=== PATIENT | male | born 2000 | race African-American/Black ===

== ENCOUNTER 2022-07-23 12:22 | Outpatient (CLI) | payer OTHER, SELFPAY | END 2022-07-23 12:23 | disposition home or self-care (01) | LOC: OP CLINIC 12:23 | PROVIDERS: PCP Family Medicine; Visit Provider Internal Medicine Gastroenterology | DX: K92.1 Melena (principal); K64.8 Other hemorrhoids | CPT/HCPCS: 45378; J2250; J3010 ==

== ENCOUNTER 2022-07-30 22:54 | Emergency (ER) | payer OTHER, SELFPAY ==
[2022-07-30 23:11] VITALS: BP 135/78; PULSE 75; RESP 18; TEMP 36.7; O2SAT 99; BMI 26.6
--- NOTE | 2022-07-30 23:22 | ED.GENADULT ---
HPI - General Adult General Time Seen by Provider: 23:20 Date Seen: 07/30/22 Chief complaint: Laceration/Wound Stated complaint: Cut Left Arm - through window Time Seen by Provider: 07/30/22 22:57 Source: patient Mode of arrival: ambulatory Limitations: no limitations History of Present Illness HPI narrative: 21-year-old who presents with a laceration of the left wrist. Patient was holding window up and broke cutting his left wrist. This happened about 30 minutes prior to arrival. Patient washed the wound out and came to the emergency department. Tetanus reported to be up-to-date. No other injuries. Related Data Home Medications Medication Instructions Recorded Confirmed No Known Home Medications 07/30/22 07/30/22 Allergies Allergy/AdvReac Type Severity Reaction Status Date / Time bee sting Allergy Severe Anaphylaxis Uncoded 07/30/22 23:13 Review of Systems Status of ROS: Reports: 10 or more systems reviewed and unremarkable except as noted in History and below Exam Narrative: Exam Narrative: General: well nourished , NAD Head: Atraumatic and normocephalic ENT: External ears and external nose are normal Eyes: Conjunctiva clear, pupils are equal reactive, external ocular motions are intact Neck: Full spontaneous range of motion of the neck Lungs: No respiratory distress Musculoskeletal: No tenderness or deformity Neurologic: No gross focal neurologic deficits Skin: 16 mm full-thickness laceration of the flexor surface of the left wrist, more proximally there is a 10 mm partial-thickness laceration. No tendon head is visible, full flexion extension the wrist, MCP, DI P, and PIP Psych: Mood and affect are appropriate Const: Vital Signs, click to edit/add: Vital Signs - 24 hr 07/30/22 23:11 Temperature 98.0 F Pulse Rate [Right Pulse Oximeter] 75 Respiratory Rate 18 Blood Pressure [Ri ght Upper Arm] 135/78 Pulse Oximetry 99 Oxygen Delivery Me thod Room Air Course Course Hospital Course: Patient seen examined, prior records reviewed. Patient with a laceration flexor surface of the left wrist. No tendon , nerve, or vascular injury. Laceration will be repaired. Wound care discussed. Vital Signs Vital signs: Initial Vital Signs Temperature 98.0 F 07/30/22 23:11 Temperature Source Temporal Artery Scan 07/30/22 23:11 Pulse Rate 75 07/30/22 23:11 Respiratory Rate 18 07/30/22 23:11 Blood Pressure 135/78 07/30/22 23:11 Blood Pressure Mean 97 07/30/22 23:11 Blood Pressure Position Sitting 07/30/22 23:11 Pulse Oximetry 99 07/30/22 23:11 Oxygen Delivery Method 07/30/22 23:11 Vital Signs Temperature 98.0 F 07/30/22 23:11 Pulse Rate 75 07/30/22 23:11 Respiratory Rate 18 07/30/22 23:11 Blood Pressure 135/78 07/30/22 23:11 Pulse Oximetry 99 07/30/22 23:11 Oxygen Delivery Method 07/30/22 23:11 Temperature 98.0 F 07/30/22 23:11 Pulse Rate 75 07/30/22 23:11 Respiratory Rate 18 07/30/22 23:11 Blood Pressure 135/78 07/30/22 23:11 Pulse Oximetry 99 07/30/22 23:11 Oxygen Delivery Method 07/30/22 23:11 Medical Decision Making Medical Records Medical records reviewed: Yes I reviewed the patient's medical records Lab Data Lab results reviewed: Yes I reviewed the patient's lab results Discharge Plan Discharge Clinical Impression: Laceration of left wrist Patient Disposition: Home, Self-Care Condition: Stable Instructions: Care For Your Stitches (DC) Additional Instructions: Wash gently with soap water, apply antibiotic ointment daily. Stitches out in 10 days. Activity Level: No Restrictions Discharge Diet: Regular Prescriptions: No Action No Known Home Medications Follow Up/Referrals: Didier Christian MD [Staff Physician] - Stand Alone Forms: [facility] Info Instructions Procedures Additional Procedures Procedure name: Laceration repair, left wrist Pre procedure diagnosis: Left wrist laceration Post procedure diagnosis: Same Written consent by: patient Site marking: not applicable Estimated blood loss (if any): none Conclusion: patient tolerated procedure Additional comments: Laceration repair, left wrist, 16 mm straight full-thickness. Risks and benefits discussed with patient, verbal consent was obtained. Wound was prepped with wound cleanser. Lidocaine 1% with epinephrine was injected along the wound edges, 1 mL total. Wound was explored, no foreign bodies found. Laceration was closed with three 4-0 Ethilon simple interrupted sutures. Wound care discussed. Patient tolerated this well.
[2022-07-30 23:50] VITALS: BP 125/70; PULSE 70; RESP 18; TEMP 36.7; O2SAT 99
[2022-07-30] MEDS: TETANUS/DIPHTH/PERTUSSIS 0.5 ML SYRINGE IM (23:54)
== END 2022-07-30 23:50 | disposition home or self-care (01) ==
PROVIDERS: Emergency Provider Family Medicine; PCP Physician Assistant
DX: S61.512A Laceration without foreign body of left wrist, initial encounter (principal); W25.XXXA Contact with sharp glass, initial encounter; Z23 Encounter for immunization
CPT/HCPCS: 12001; 90471; 90715; 99282; 99283

== ENCOUNTER 2023-05-23 10:51 | Emergency (ER) | payer BC, SELFPAY ==
[2023-05-23 10:58] VITALS: BP 159/70; PULSE 67; RESP 18; TEMP 36.6; O2SAT 98; BMI 26.6
--- NOTE | 2023-05-23 11:01 | CRLHL7_ITS ---
For Patients: As a result of the Cures Act, medical imaging exams and procedure reports are released immediately into your electronic medical record. You may view this report before your referring provider. If you have questions, please contact your health care provider. Indication: Pain Technique: Three views Comparison: None Findings: Transversely oriented nondisplaced proximal left 5th metatarsal fracture. Impression: Left 5th metatarsal fracture described above. Dictated by Reggie Hillman MD @ 05/23/2023 12:20:46 PM (Electronically Signed)
--- NOTE | 2023-05-23 12:07 | ED.GENADULT ---
HPI - General Adult General Time Seen by Provider: 12:07 Date Seen: 05/23/23 Chief complaint: Extremity Pain/Injury, Lower Stated complaint: L foot pain/injury Time Seen by Provider: 05/23/23 12:03 Source: patient and family Mode of arrival: ambulatory Limitations: physical limitation History of Present Illness HPI narrative: Freddy is a 22-year-old male with no real past medical history presents emerged department with a left lower extremity injury. Patient states he was playing soccer yesterday, he was sprinting, and developed some left foot pain, patient denies any twisting injury, no popping sensation. Pain progressively got worse. He had some swelling to the area, today was unable to ambulate on that left foot. Denies any numbness or tingling, he has been elevating, placing ice and taking [id number] NSAIDs. No other injury noted. Related Data Home Medications Medication Instructions Recorded Confirmed loratadine 10 mg tablet 10 mg PO QDAY 05/28/23 07/16/23 Allergies Allergy/AdvReac Type Severity Reaction Status Date / Time bee venom protein (honey bee) Allergy Severe Anaphylaxis Verified 07/16/23 14:18 Review of Systems Status of ROS: Reports: 10 or more systems reviewed and unremarkable except as noted in History and below [facility] Medical History (Updated 07/16/23 @ 15:42 by Mervin Natarajan PA-C) Sore throat ?J02.9 - Acute pharyngitis, unspecified (ICD-10) Pharyngitis ?J02.9 - Acute pharyngitis, unspecified (ICD-10) Influenza-like illness ?J11.1 - Influenza due to unidentified influenza virus with other respiratory manifestations (ICD-10) 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 (ICD-10) No significant past medical history Surgical History (Updated 05/28/23 @ 13:01 by Christine Khan ~ [facility], [facility]) History of adenoidectomy ?Z90.89 - Acquired absence of other organs (ICD-10) Social History (Reviewed 05/28/23 @ 13:01 by Christine Khan ~ [facility], [facility]) Smoking Status: Current some day smoker Second hand tobacco smoke exposure: No How often do you have a drink containing alcohol: never How often do you have six or more drinks on one occasion: Never AUDIT-C Alcohol total score: 0 Non-prescribed substance use: marijuana (any form) Exam Narrative: Exam Narrative: General: No obvious distress, HEENT: Pupils equal round reactive to light, extraocular muscles intact Lungs: Clear to auscultation bilaterally Heart; normal sinus rhythm S1-S2 Muscle skeletal: Left lower extremity: Swelling to the dorsum of the foot, tender to palpation the proximal 4th and 5th metatarsal, active plantar and dorsal flexion, nontender to palpation the medial and lateral malleolus. CMS intact. Const: Vital Signs, click to edit/add: Vital Signs - 24 hr 05/23/23 10:58 Temperature 97.8 F Pulse Rate [Right Pulse Oximeter] 67 Respiratory Rate 18 Blood Pressure [Ri ght Upper Arm] 159/70 H Pulse Oximetry 98 Oxygen Delivery Me thod Room Air Course Course ED Course: 12:00 PM: AIDET performed, workup will include imaging including XR left foot 3-4 views, patient does not want anything for pain. Differential diagnosis include but not limited to fracture, sprain, contusion, dislocation, vascular damage, nerve damage, ligament damage, tendon damage and other etiologies Reevaluation(s) Time of Reevaluation #1: 12:43 Reevaluation #1: Findings: Transversely oriented nondisplaced proximal left 5th metatarsal fracture. Spoke with Mervin CADET. for Orthopedics, recommendations were for a walking boot, weigh tbear as tolerated, he will follow-up with orthopedics here in [place] as scheduled next week. This was discussed with mother and patient. Vital Signs Vital signs: Initial Vital Signs Temperature 97.8 F 05/23/23 10:58 Temperature Source Temporal Artery Scan 05/23/23 10:58 Pulse Rate 67 05/23/23 10:58 Respiratory Rate 18 05/23/23 10:58 Blood Pressure 159/70 H 05/23/23 10:58 Blood Pressure Mean 99 05/23/23 10:58 Blood Pressure Position Sitting 05/23/23 10:58 Pulse Oximetry 98 05/23/23 10:58 Oxygen Delivery Method Room Air 05/23/23 10:58 Vital Signs Temperature 97.8 F 05/23/23 10:58 Pulse Rate 67 05/23/23 10:58 Respiratory Rate 18 05/23/23 10:58 Blood Pressure 159/70 H 05/23/23 10:58 Pulse Oximetry 98 05/23/23 10:58 Oxygen Delivery Method Room Air 05/23/23 10:58 Temperature 97.8 F 05/23/23 10:58 Pulse Rate 67 05/23/23 10:58 Respiratory Rate 18 05/23/23 10:58 Blood Pressure 159/70 H 05/23/23 10:58 Pulse Oximetry 98 05/23/23 10:58 Oxygen Delivery Method Room Air 05/23/23 10:58 Discharge Plan Discharge Clinical Impression: Closed fracture of fifth metatarsal bone Qualifiers: Encounter type: initial encounter Fracture alignment: nondisplaced Laterality: left Qualified Code(s): S92.355A - Nondisplaced fracture of fifth metatarsal bone, left foot, initial encounter for closed fracture Patient Disposition: Home, Self-Care Condition: Improved Instructions: Foot Fracture in Adults (ED) Additional Instructions: You have a follow up appointment at the [place] [facility] on Saturday05/28/23, 1pm. [phone] Activity Level: Activity as Tolerated Prescriptions: No Action loratadine 10 mg tablet 10 mg PO QDAY Follow Up/Referrals: Kenzie Mclaughlin PA [Primary Care Provider] - Stand Alone Forms: [facility] Info Instructions
== END 2023-05-23 13:12 | disposition home or self-care (01) ==
PROVIDERS: Emergency Provider Student in an Organized Health Care Education/Training Program; PCP Physician Assistant
DX: S92.355A Nondisplaced fracture of fifth metatarsal bone, left foot, initial encounter for closed fracture (principal); Y93.66 Activity, soccer
CPT/HCPCS: 73630; 99283; 99284

== ENCOUNTER 2024-01-01 15:45 | Outpatient (RCR) | payer OTHER, SELFPAY | END 2024-02-19 09:53 | disposition home or self-care (01) | PROVIDERS: PCP Physician Assistant; Visit Provider Physician Assistant Surgical | DX: S92.353A Displaced fracture of fifth metatarsal bone, unspecified foot, initial encounter for closed fracture (principal); Z51.89 Encounter for other specified aftercare | CPT/HCPCS: 97110; 97161 ==

== ENCOUNTER 2024-04-27 13:06 | Emergency (ER) | payer OTHER, SELFPAY ==
[2024-04-27 13:25] VITALS: BP 133/69; PULSE 63; RESP 18; TEMP 36.7; O2SAT 99; BMI 25.8
[2024-04-27 14:17] LABS: Strep A DNA Probe* NOT DETECTED (Not Detectd)
[2024-04-27 14:31] LABS: PCR FLU A Negative PCR FLU A (Negative); PCR FLU B Negative PCR FLU B (Negative); PCR RSV Negative PCR RSV (Negative); SARS PCR* Negative SARS-CoV-2 (Negative)
--- OUTSIDE RECORDS SUMMARY | 2024-04-27 14:34 | XMS_ITS | Clinical Summary ---
Author Organization [facility] Address [place], [place] [address] Care Team Providers Care Payroll Tax Analyst Name Role Phone Unavailable Primary Care Provider Unavailabl e Allergies Active Allergy Reactions Criticality Noted Date Comments Hymenoptera Allergenic Extract Anaphylaxis High 10/10 Medications No known medications Active Problems Problem Noted Date Diagnosed Date Allergic rhinitis, cause unspecified 07/14/2012 Resolved Problems Problem Noted Date Diagnosed Date Resolved Date Asthma 09/16/2013 03/29/2021 Immunizations Name Administration Dates Next Due AMB Influenza, IIV3 (Age >=3 years) Preserve Free (Flu Clinic Only) 07/20/2011,06/28/2010 AMB Influenza, IIV3 (Age >=3 years)(Flu Clinic Only) 07/31/2008 AMB Influenza, IIV4 PF (=>6 mos Flulaval,Fluzone Fluarix)(Flu Clinic Only) 10/05/2019,07/02/2018 COVID-19 vaccine (Iceotope-Bio NTech 30mcg/0.3mL) 12YO+ BIVALENT PF, MDV 07/09/2022 COVID-19 vaccine (Pfizer-Bio NTech 30mcg/0.3mL) PF, MDV 08/16/2021 DTaP 01/27/2008, 4,04/12/2003,02/09 AHmR-RrlD-ORP (Pediarix) 06/29/2003,04/12/2003,0 02/09/2003 HIB PRP-OMP (PedvaxHIB) 06/29/2003,04/12/2003, HIB PRP-T (ActHIB,Hiberix) 06/29/2003 HIB-HepB (Comvax) 04/12/2003,02/09/2003 HPV 9 (Gardasil 9) 04/17/2016,11/25/2015, 015 Hepatitis A (Peds) 05/03/2010,01/27/2008 Hepatitis B (Peds) 2002 Inactivated Polio Vaccine 01/27/2008,04/12/2003, 02/09/2003 Influenza A (H1N1), Inactivated 07/21/2009 Influenza Virus, Unspecified 06/22/2009 Influenza, IIV3 (Age 6-35 mos) 07/20/2011,2009 Influenza, IIV3 (Age >=3 years) 07/14/20 12,06/22/2009,07/31/2008,07/24,08/05/2006,08/09/2005,07/20/2004 Influenza, IIV4 07/09/2022,,07/31/2017,06/24,07/06/2014 MMR 01/27/2008,12/13/2003 Meningococcal B 03/29/2021,04/17/2019 Meningococcal Vaccine (Menveo) 04/17/2019,2011 Pneumococcal conj 7-Valent (Prevnar 7) 3,04/12/2003,02/09/2003 Tdap 04/27/2015 Varicella Vaccine 01/27/2008,12/13/2003 Yellow Fever 11/13/2011 Family History Medical History Relation Name Comments Asthma Father Diabetes Father Hyperlipidemia Father Hypertension Father Hyperlipidemia Mother Heart Disease Other paternal great grandpa in 50's of [place] Heart Disease Paternal Grandfather o f [place] at 59 years Other Sister Crohns disease Cancer-colon No Family History Relation Name Status Comments Father Mother Other Paternal Grandfather Sister Social History Tobacco Use Types Packs/Day Years Used Date Smoking Tobacco: Former Cigarettes Smokeless Tobacco: Former Chew Tobacco Cessation:Counseling Given: Yes Alcohol Use Standard Drinks/Week Comments Yes 0 (1 standard drink = 0.6 oz pur e alcohol) less than once per month PHQ-2 Answer Date Recorded PHQ-2 TOTAL SCORE 1 04/19/2022 Social Connections Answer Date Recorded Frequency of Communication with Friends and Fami ly Not on file 08/30/2021 Financial Resource Strain Answer Date R ecorded Difficulty of Paying Living Expenses Not on file 08/30/2021 Difficulty of Paying Living Expenses Not on file 08/30/2021 Sex and Gender Information Value Date Recorded Sex Assigned at Not on file Gender Identity Not on file Sexual Orientation Not on file Obstetrics History Last Filed Vital Signs Vital Sign Reading Time Taken Comments Blood Pressure 133/81 07/09/2022 10:27 AM CDT Pulse 70 07/09/2022 10:27 AM CDT Temperature 37.3 ??C (99.1 ??F) 03/22/2022 1 2:49 PM CDT Respiratory Rate 18 12/23/2014 8:55 AM CDT Oxygen Saturation 99% 07/09/2022 10: 27 AM CDT Inhaled Oxygen Concentration - - Weight 81.1 kg (178 lb 12.8 oz) 022 10:27 AM CDT Height 175.8 cm (5' 9.21) 07/09/2022 1 0:27 AM CDT Body Mass Index 26.24 07/09/2022 10:27 AM CDT Plan of Treatment Health Maintenance Due Date Last Done Comments Depression screening for age 12+ 04/19/2023 04/19/2022, 03/22/2022, 03/30/2021, Additional history exists COVID-19 vaccine series ( season) 2023 07/09/2022, 08/16/2021, 01/06/2021, Additional history exists BMI (ht and wt on same day) for age 18+ 07/09/2023 07/09/2022, 04/19/2022, 03/22/2022, Additional history exists Influenza for age 9-49 05/10/2024 , 06/20/2021, 10/05/2019, Additional history exists Tetanus booster 04/27/2025 04/27/2015 Pneumococcal series for age 6-64 Aged Out 06/29/2003, 04/12/2003, 02/09/2003 No longer eligible based on patient's age to complete this topic Tdap Completed 04/27/2015 HPV series for age 9-26 Completed 04/17/20 16, 11/25/2015, 06/24/2015 Meningococcal series for age 11-21 Completed 04/17/2019, 11/13/2011 HIV for age 15-65 Completed 04/19/2022 Hepatitis C screening for age 18-79 Completed 04/19/2022 Procedures Procedure Name Priority Date/Time Associated Diagnosis Comments ANTI HIV 1/2 Routine 04/19/2022 5:21 PM CDT Screen for STD (sexually transmitted disease) ANTI HCV Routine 04/19/2022 5:21 PM CDT Screen for STD (sexually transmitted disease) from Last 3 Months or Most Recently Relevant to Health Maintenance Results * ANTI HCV (04/19/2022 5:21 PM CDT) HEPATITIS C ANTIBODY Non-React miko Non-React miko 04/20/2022 4:19 PM CDT [facility] Comment:Antibodies to HCV no t detected; does not exclude the possibility of exposure to HCV. Blood BLOOD SPECIMEN / Unknown Venipuncture / Unknown 04/19/2022 5:21 PM CDT 04/19/2022 5:32 PM CDT [facility] [address] [place] [address], * ANTI HIV 1/2 (04/19/2022 5:21 PM CDT) HIV-1/HIV-2 ANTIBODY Non-Reacti ve Non-Reacti ve 04/20/2022 4:41 PM CDT [facility] Comment:HIV-1 p24 and HIV-1/ HIV-2 Ab not detected. Blood BLOOD SPECIMEN / Unknown Venipuncture / Unknown 04/19/2022 5:21 PM CDT 04/19/2022 5:32 PM CDT [facility] CAD[facility] [address] [place] [address], from Last 3 Months or Most Recently Relevant to Health Maintenance
--- NOTE | 2024-04-27 14:43 | ED.GENADULT ---
HPI - General Adult General Date Seen: 04/27/24 Chief complaint: Sore Throat Stated complaint: possible strep Time Seen by Provider: 04/27/24 13:48 Source: patient Mode of arrival: ambulatory Limitations: no limitations History of Present Illness HPI narrative: Patient is a 23-year-old male presenting to the emergency department for sore throat. Symptoms have been going on for the past couple days he has also been having rhinorrhea and body aches. New he is not aware of any sick contacts. Says there is some pain with swallowing but has not noticed any voice changes or difficulty breathing. Has not had any chest pain, shortness of breath coughing, headache, vision changes, lightheadedness, dizziness, weakness. No other concerns noted at this time. Related Data Home Medications ?Medication ?Instructions ?Recorded ?Confirmed loratadine 10 mg tablet 10 mg PO QDAY 05/28/23 04/27/24 Allergies Allergy/AdvReac Type Severity Reaction Status Date / Time bee venom protein (honey bee) Allergy Severe Anaphylaxis Verified 04/27/24 13:28 Review of Systems Status of ROS: Reports: 10 or more systems reviewed and unremarkable except as noted in History and below [facility] Medical History Sore throat ?J02.9 - Acute pharyngitis, unspecified (ICD-10) Pharyngitis ?J02.9 - Acute pharyngitis, unspecified (ICD-10) Influenza-like illness ?J11.1 - Influenza due to unidentified influenza virus with other respiratory manifestations (ICD-10) 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 (ICD-10) No significant past medical history Surgical History History of adenoidectomy ?Z90.89 - Acquired absence of other organs (ICD-10) Social History Smoking Status: Current some day smoker Second hand tobacco smoke exposure: No How often do you have a drink containing alcohol: never How often do you have six or more drinks on one occasion: Never AUDIT-C Alcohol total score: 0 Non-prescribed substance use: marijuana (any form) Exam Narrative: Exam Narrative: Const: Well-nourished, Well-developed, in mild distress Eyes: PERRL, no conjunctival injection, and symmetrical lids HENT: Atraumatic external nose and ears. Moist mucous membranes. Uvula midline, no tonsillar exudates or swelling, no swelling noted under the tongue Neck: Symmetric, trachea midline, No thyromegaly. CVS: RRR, No murmurs or gallops. Peripheral pulses 2+ and equal in all extremities RESP: Unlabored respiratory effort. Clear to auscultation bilaterally. GI: Nontender/Nondistended, No rebound or guarding. MSK:Extremities w/o deformity, Normal Active ROM Skin: Warm, Dry. No rashes or lesions. Neuro: Normal Muscle tone, No focal neurological deficits. Psych: Awake, Alert, & Oriented x3. Appropriate mood and affect. Const: Vital Signs, click to edit/add: Vital Signs - 24 hr 04/27/24 13:25 Temperature 98.0 F Pulse Rate [Pulse Oximeter] 63 Respiratory Rate 18 Blood Pressure [Ri t Upper Arm] 133/69 Pulse Oximetry 99 Oxygen Delivery Me thod Room Air Course Vital Signs Vital signs: Initial Vital Signs Temperature 98.0 F 04/27/24 13:25 Temperature Source Temporal Artery Scan 04/27/24 13:25 Pulse Rate 63 04/27/24 13:25 Respiratory Rate 18 04/27/24 13:25 Blood Pressure 133/69 04/27/24 13:25 Blood Pressure Mean 90 04/27/24 13:25 Blood Pressure Position Sitting 04/27/24 13:25 Pulse Oximetry 99 04/27/24 13:25 Oxygen Delivery Method Room Air 04/27/24 13:25 Vital Signs Temperature 98.0 F 04/27/24 13:25 Pulse Rate 63 04/27/24 13:25 Respiratory Rate 18 04/27/24 13:25 Blood Pressure 133/69 04/27/24 13:25 Pulse Oximetry 99 04/27/24 13:25 Oxygen Delivery Method Room Air 04/27/24 13:25 Temperature 98.0 F 04/27/24 13:25 Pulse Rate 63 04/27/24 13:25 Respiratory Rate 18 04/27/24 13:25 Blood Pressure 133/69 04/27/24 13:25 Pulse Oximetry 99 04/27/24 13:25 Oxygen Delivery Method Room Air 04/27/24 13:25 Medical Decision Making MDM Narrative Medical decision making narrative: Patient is 23-year-old male presenting for sore throat. Patient is not showing signs of peritonsillar abscess, Ezio angina, retropharyngeal abscess,Lemierre disease or any other concerning oral pharynx or deep neck space abscesses. Imaging is not necessary. COVID/flu/RSV along with strep test were all done and were negative. At this time this is most likely a viral pharyngitis and he will be discharged. He is agreeable to this plan. Lab Data Labs: Lab Results 04/27/24 Range/Units 13:33 SARS-CoV-2 (PCR) Negative SARS-CoV-2 (Negative) Influenza Type A (PCR) Negative PCR FLU A (Negative) Influenza Type B (PCR) Negative PCR FLU B (Negative) RSV (PCR) Negative PCR RSV (Negative) Group A Strep DNA NOT DETECTED (Not Detectd) Discharge Plan Discharge Clinical Impression: Pharyngitis Qualifiers: Pharyngitis/tonsillitis etiology: unspecified etiology Qualified Code(s): J02.9 - Acute pharyngitis, unspecified Patient Disposition: Home, Self-Care Condition: Stable Instructions: Pharyngitis (ED) Additional Instructions: Take Tylenol ibuprofen for your pain. Return to emergency department for new or worsening symptoms including difficulty breathing, changes in your voice. Symptoms should resolve on their own next few days to a week Prescriptions: No Action loratadine 10 mg tablet 10 mg PO QDAY Follow Up/Referrals: Kenzie Mclaughlin PA [Primary Care Provider] - Stand Alone [facility] Info Inst[facility]
== END 2024-04-27 14:49 | disposition home or self-care (01) ==
PROVIDERS: Emergency Provider Student in an Organized Health Care Education/Training Program; PCP Physician Assistant
DX: J02.9 Acute pharyngitis, unspecified (principal)
CPT/HCPCS: 87631; 87651; 99282

== ENCOUNTER 2024-07-02 15:16 | Emergency (ER) | payer OTHER, SELFPAY ==
[2024-07-02 15:19] VITALS: BP 147/81; PULSE 71; RESP 18; TEMP 36.6; O2SAT 96; BMI 25.8
--- NOTE | 2024-07-02 15:37 | CRLHL7_ITS ---
For Patients: As a result of the Cures Act, medical imaging exams and procedure reports are released immediately into your electronic medical record. You may view this report before your referring provider. If you have questions, please contact your health care provider. Indication: Pain. Technique: Left foot, 3 views. Comparison: None. Findings/Impression: Bones: Alignment is normal. Subtle lucency along the 5th metatarsal base suggestive of nondisplaced fracture. Recommend correlation with point tenderness. Otherwise, no displaced fractures or bone lesions. Joint spaces: Unremarkable. Soft tissues: Unremarkable. Dictated by Vipul Humphries MD @ 07/02/2024 5:01:47 PM (Electronically Signed)
--- NOTE | 2024-07-02 15:57 | ED_ITS ---
HPI - General Adult General Date Seen: 07/02/24 Chief complaint: Extremity Pain/Injury, Lower Stated complaint: possibly broke L foot Time Seen by Provider: 07/02/24 15:20 Source: patient, RN notes reviewed and old records reviewed Mode of arrival: ambulatory Limitations: no limitations History of Present Illness HPI narrative: Patient is a 23-year-old young man, [employer] student, who in 2021 had a zone 2 5th metatarsal fracture managed conservatively with casting and bone stimulator. He reports that he had been doing well until yesterday when he was playing soccer, felt a pop and now has pain that feels similar to his previous fracture. Difficult to walk due to pain. No other injuries or complaints. 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 Related Data Home Medications ?Medication ?Instructions ?Recorded ?Confirmed loratadine 10 mg tablet 10 mg PO QDAY 05/28/23 07/02/24 Allergies Allergy/AdvReac Type Severity Reaction Status Date / Time bee venom protein (honey bee) Allergy Severe Anaphylaxis Verified 04/27/24 13:28 [facility] Medical History Sore throat ?J02.9 - Acute pharyngitis, unspecified (ICD-10) Pharyngitis ?J02.9 - Acute pharyngitis, unspecified (ICD-10) Influenza-like illness ?J11.1 - Influenza due to unidentified influenza virus with other respiratory manifestations (ICD-10) 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 (ICD-10) No significant past medical history Surgical History History of adenoidectomy ?Z90.89 - Acquired absence of other organs (ICD-10) Social History Smoking Status: Current some day smoker What tobacco products do you use: cigarettes Do you use any of these nicotine containing products: None Second hand tobacco smoke exposure: No How often do you have a drink containing alcohol: 2-4 times a month How often do you have six or more drinks on one occasion: Less than monthly AUDIT-C Alcohol total score: 3 Non-prescribed substance use: marijuana (any form) service: No Exam Narrative: Exam Narrative: Vital signs reviewed In general, alert, nontoxic young man. Extremities: The left foot is normal in appearance, no bruising swelling or deformity. Some mild tenderness over the 5th metatarsal. Distal CMS intact. Skin: Warm dry well perfused. Const: Vital Signs, click to edit/add: Vital Signs - 24 hr 07/02/24 15:19 Temperature 97.8 F Pulse Rate [Right Pulse Oximeter] 71 Respiratory Rate 18 Blood Pressure [Ri ght Upper Arm] 147/81 H Pulse Oximetry 96 Oxygen Delivery Me thod Room Air Documenting provider has reviewed patient's vital signs: yes Course Course ED Course: Orthopedic records and previous x-rays reviewed. Will obtain new x-rays of the left foot today. X-ray of the left foot shows a lucency through the base of the 5th metatarsal, comparison to previous x-ray shows that on the AP this actually looks a little bit better than back in November, but on the oblique it does look like there is probably a new fracture through this area. For now, I have recommended resumption of his walking boot, nonweightbearing, he has a scooter and crutches and we will make a follow-up appointment for him with Orthopedics. Vital Signs Vital signs: Initial Vital Signs Temperature 97.8 F 07/02/24 15:19 Temperature Source Temporal Artery Scan 07/02/24 15:19 Pulse Rate 71 07/02/24 15:19 Pulse Rhythm Regular 07/02/24 15:19 Pulse Strength 3+ Normal 07/02/24 15:19 Respiratory Rate 18 07/02/24 15:19 Blood Pressure 147/81 H 07/02/24 15:19 Blood Pressure Mean 103 07/02/24 15:19 Blood Pressure Position Sitting 07/02/24 15:19 Pulse Oximetry 96 07/02/24 15:19 Oxygen Delivery Method Room Air 07/02/24 15:19 Vital Signs Temperature 97.8 F 07/02/24 15:19 Pulse Rate 71 07/02/24 15:19 Respiratory Rate 18 07/02/24 15:19 Blood Pressure 147/81 H 07/02/24 15:19 Pulse Oximetry 96 07/02/24 15:19 Oxygen Delivery Method Room Air 07/02/24 15:19 Temperature 97.8 F 07/02/24 15:19 Pulse Rate 71 07/02/24 15:19 Respiratory Rate 18 07/02/24 15:19 Blood Pressure 147/81 H 07/02/24 15:19 Pulse Oximetry 96 07/02/24 15:19 Oxygen Delivery Method Room Air 07/02/24 15:19 Medical Decision Making Imaging Data Foot x-ray: Radiologist's impression: Patient: TANIA FREDERICK Facility: [facility] Site . Site : 2002 Study: XRay-Extremity Left FOOT 2 VIEWS-07/02/2024 4:13:31 PM Ordering Physician: Roxana Núñez Final Report: Indication: Pain. Technique: Left foot, 3 views. Comparison: None. Findings/Impression: Bones: Alignment is normal. Subtle lucency along the 5th metatarsal base suggestive of nondisplaced fracture. Recommend correlation with point tenderness. Otherwise, no displaced fractures or bone lesions. Joint spaces: Unremarkable. Soft tissues: Unremarkable. Dictated by Vipul Humphries MD @ 07/02/2024 5:01:47 PM Discharge Plan Discharge Clinical Impression: Closed fracture of fifth metatarsal bone Qualifiers: Encounter type: initial encounter Fracture alignment: nondisplaced Laterality: left Qualified Code(s): S92.355A - Nondisplaced fracture of fifth metatarsal bone, left foot, initial encounter for closed fracture Patient Disposition: Home, Self-Care Condition: Stable Instructions: Foot Fracture in Adults (ED) Additional Instructions: Ice, ibuprofen or Tylenol, walking boot, crutches or scooter, minimal weight bear. Orthopedic follow-up as scheduled. Prescriptions: No Action loratadine 10 mg tablet 10 mg PO QDAY Follow Up/Referrals: Kenzie Mclaughlin PA [Primary Care Provider] - Stand Alone Forms: MyHealth Info Instructions
== END 2024-07-02 16:57 | disposition home or self-care (01) ==
PROVIDERS: Emergency Provider Emergency Medicine; PCP Physician Assistant
DX: S92.355A Nondisplaced fracture of fifth metatarsal bone, left foot, initial encounter for closed fracture (principal); X58.XXXA Exposure to other specified factors, initial encounter; Y93.66 Activity, soccer
CPT/HCPCS: 73630; 99283

== ENCOUNTER 2024-07-17 10:25 | Day surgery (SDC) | payer OTHER, SELFPAY ==
[2024-07-17] VITALS (14 sets, daily range): BP systolic 112–159; BP diastolic 64–113; PULSE 59–89; RESP 14–18; TEMP 36.2–36.7; O2SAT 97–100; BMI 26.4
--- OUTSIDE RECORDS SUMMARY | 2024-07-17 10:28 | XMS_ITS | Clinical Summary ---
Author Organization [facility] Address [place], [place] [address] Care Team Providers Care Manager Of Business Name Role Phone Pcp, No Primary Care Provider Unavailabl e Allergies Active Allergy Reactions Criticality Noted Date Comments Hymenoptera Allergenic Extract Anaphylaxis High 10/10 Medications No known medications Active Problems Problem Noted Date Diagnosed Date Closed fracture of fifth metatarsal bone 024 Overview (07/13/2024): Approximately 7 months post closed treatment of a closed, acute left fifth metatarsal nondisplaced fracture (Hernandez fracture zone 2) - date of injury approximately 05/07/2023, re-injury 05/22/2023 - stable, 4 cortices healing. Allergic rhinitis, cause unspecified 07/14/2012 Resolved Problems Problem Noted Date Diagnosed Date Resolved Date Asthma 09/16/2013 03/29/2021 Encounters Date Type Department Care Team Description 07/13/2024 11:55 AM FISH EGG PACKER Office Visit [facility] [address] [place] [address] Veronica Winn MD Pre-Op Exam (07/17/24 Hernandez Fracture [facility] [address] Delmer aBrney) 07/13/2024 Travel 07/02/2024 Orders Only [facility] Scanner 1 scan: (1-Ord) [facility], FOOT LT 3 VIEW, 07/02/2024 from Last 3 Months Immunizations Name Administration Dates Next Due AMB Influenza, IIV3 (Age >=3 years) Preserve Free (Flu Clinic Only) 07/20/2011,06/28/2010 AMB Influenza, IIV3 (Age >=3 years)(Flu Clinic Only) 07/31/2008 AMB Influenza, IIV4 PF (=>6 mos Flulaval,Fluzone Fluarix)(Flu Clinic Only) 10/05/2019,07/02/2018 COVID-19 vaccine (YourStreet NTech 30mcg/0.3mL) 12YO+ BIVALENT PF, MDV 07/09/2022 COVID-19 vaccine ([employer]iegogo-unrival NTech 30mcg/0.3mL) PF, MDV 08/16/2021 DTaP 01/27/2008, 4,04/12/2003,02/09 [id number] (Pediarix) 06/29/2003,04/12/2003,0 02/09/2003 HIB PRP-OMP (PedvaxHIB) 06/29/2003,04/12/2003, HIB PRP-T (ActHIB,Hiberix) 06/29/2003 HIB-HepB (Comvax) 04/12/2003,02/09/2003 HPV 9 (Gardasil 9) 04/17/2016,11/25/2015, 015 Hepatitis A (Peds) 05/03/2010,01/27/2008 Hepatitis B (Peds) 2002 Inactivated Polio Vaccine 01/27/2008,04/12/2003, 02/09/2003 Influenza A (H1N1), Inactivated 07/21/2009 Influenza Virus, Unspecified 06/22/2009 Influenza, IIV3 (Age 6-35 mos) 07/20/2011,2009 Influenza, IIV3 (Age >=3 years) 07/14/20 12,06/22/2009,07/31/2008,07/24,08/05/2006,08/09/2005,07/20/2004 Influenza, IIV4 07/09/2022,,07/31/2017,06/24,07/06/2014 MENINGOCOCCAL VACCINE 2 VIAL 2MO-55YO (MENVEO) 04/17/2019,11/13/2011 MMR 01/27/2008,12/13/2003 Meningococcal B 03/29/2021,04/17/2019 Pneumococcal conj 7-Valent (Prevnar 7) 3,04/12/2003,02/09/2003 Tdap 07/30/2022,04/27/2015 Varicella Vaccine 01/27/2008,12/13/2003 Yellow Fever 11/13/2011 Family History Medical History Relation Name Comments Asthma Father Diabetes Father Hyperlipidemia Father Hypertension Father Hyperlipidemia Mother Heart Disease Other paternal great grandpa in 50's of [place] Heart Disease Paternal Grandfather o f [place] at 59 years Other Sister Crohns disease Anesthesia Problem No Family History Cancer-colon No Family History Clotting disorder No Family History Relation Name Status Comments Father Mother Other Paternal Grandfather Sister Social History Tobacco Use Types Packs/Day Years Used Date Smoking Tobacco: Former Cigarettes Smokeless Tobacco: Former Chew Tobacco Cessation:Counseling Given: No Alcohol Use Standard Drinks/Week Comments Yes 0 (1 standard drink = 0.6 oz pur e alcohol) less than once per month PHQ-2 Answer Date Recorded PHQ-2 TOTAL SCORE 0 07/13/2024 Social Connections Answer Date Recorded Do you often feel lonely or isolated from those around you? 0 07/13/2024 Financial Resource Strain Answer Date R ecorded Difficulty of Paying Living Expenses 3 07/13/2024 Difficulty of Paying Living Expenses Not on file 07/13/2024 Food Insecurity Answer Date Recorded Do you worry your food will run out before you are able to buy more? 1 07/13/2024 Transportation Needs Answer Date Record ed Does lack of transportation keep you from medica l appointments? 2 07/13/2024 Does lack of transportation keep you from work, meetings or getting things that you need? 1 07/13/2024 Housing Stability Answer Date Recorded What is your housing situation today? 1 07/13/2024 Sex and Gender Information Value Date Recorded Sex Assigned at Not on file Gender Identity Not on file Sexual Orientation Not on file Obstetrics History Last Filed Vital Signs Vital Sign Reading Time Taken Comments Blood Pressure 138/80 07/13/2024 12:26 PM [employer] EGG P[employer]ER Pulse 70 07/13/2024 12:05 PM [employer] E[employer] P[employer]ER Temperature 37.3 ??C (99.1 ??F) 03/22/2022 12:49 PM C DT Respiratory Rate 18 12/23/2014 8:55 AM CDT Oxygen Saturation 97% 07/13/2024 12:05 PM FISH EGG P[employer]ER Inhaled Oxygen Concentration - - Weight 83.6 kg (184 lb 3.2 oz) 07/13/2024 12:05 PM FISH EGG PACKER Height 177.3 cm (5' 9.8) 07/13/2024 12:05 PM CS T Body Mass Index 26.58 07/13/2024 12:05 PM FISH EGG P[employer]ER Plan of Treatment Health Maintenance Due Date Last Done Comments COVID-19 vaccine series ( season) 2024 07/09/2022, 08/16/2021, 01/06/2021, Additional history exists Influenza for age 9-49 05/10/2024 , 06/20/2021, 10/05/2019, Additional history exists BMI (ht and wt on same day) for age 18+ 07/13/2025 07/13/2024, 07/09/2022, 04/19/2022, Additional history exists Depression screening for age 12+ 07/13/2025 07/13/2024, 04/19/2022, 03/22/2022, Additional history exists Tetanus booster 07/30/2032 07/30/2022, 04/27/2015 Pneumococcal series for age 6-64 Aged Out 06/29/2003, 04/12/2003, 02/09/2003 No longer eligible based on patient's age to complete this topic HPV series for age 9-26 Completed 04/17/20 16, 11/25/2015, 06/24/2015 Meningococcal series for age 11-21 Completed 04/17/2019, 11/13/2011 HIV for age 15-65 Completed 04/19/2022 Hepatitis C screening for age 18-79 Completed 04/19/2022 Tdap Completed 07/30/2022, 04/27/2015 Procedures Procedure Name Priority Date/Time Associated Diagnosis Comments SCAN-RADIOLOGY REPORT 07/02/2024 12:00 AM CDT ANTI HIV 1/2 Routine 04/19/2022 5:21 PM CDT Screen for STD (sexually transmitted disease) ANTI HCV Routine 04/19/2022 5:21 PM CDT Screen for STD (sexually transmitted disease) from Last 3 Months or Most Recently Relevant to Health Maintenance Results * SCAN-RADIOLOGY REPORT (07/02/2024 12:00 AM CDT) Anatomical Region Laterality Modality Other Scanner OTHER * ANTI HCV (04/19/2022 5:21 PM CDT) Pathologist [facility] HEPATITIS C ANTIBODY Non-React miko Non-React miko 04/20/2022 4:19 PM CDT [facility] Comment:Antibodies to HCV no t detected; does not exclude the possibility of exposure to HCV. Blood BLOOD SPECIMEN / Unknown Venipuncture / Unknown 04/19/2022 5:21 PM CDT 04/19/2022 5:32 PM CDT Kenzie CADET SEND OUTS Performing Organization Address City/[facility]/ZIP Co de Phone Number [facility] [address] [place] [address], * ANTI HIV 1/2 (04/19/2022 5:21 PM CDT) Pathologist [facility] HIV-1/HIV-2 ANTIBODY Non-Reacti ve Non-Reacti ve 04/20/2022 4:41 PM CDT [facility] Comment:HIV-1 p24 and HIV-1/ HIV-2 Ab not detected. Blood BLOOD SPECIMEN / Unknown Venipuncture / Unknown 04/19/2022 5:21 PM CDT 04/19/2022 5:32 PM CDT Kenzie CADET SEND OUTS [facility] [address] [place] [address], from Last 3 Months or Most Recently Relevant to Health Maintenance Care Teams Manager Of Business Relationship Specialty Start Date End Date Pcp, No . PCP - General 07/13/24
[2024-07-17] MEDS: SODIUM CHLORIDE 0.9 % (FLUSH) 10 ML SYRINGE IVF (10:45)
[2024-07-17] MEDS: 0.9 % SODIUM CHLORIDE 500 ML 500 ML 100 ML IV (11:30)
--- NOTE | 2024-07-17 11:39 | SUR.PREOP ---
TIME?OUT:?1141 PT/RN/MDA?VERIFICATION?OF?SURGICAL?SITE,?PROCEDURE,?NERVE BLOCK,AND?CONSENT OBTAINED?PRIOR?TO?INVASIVE?PROCEDURE.
[2024-07-17] MEDS: CEFAZOLIN 2 GM in 0.9 % SODIUM CHLORIDE Mini-bag 100 ML IVPB (12:10)
--- NOTE | 2024-07-17 12:30 | CRLHL7_ITS ---
For Patients: As a result of the Century Cures Act, medical imaging exams and procedure reports are released immediately into your electronic medical record. You may view this report before your referring provider. If you have questions, please contact your health care provider. FINDINGS : Three images of the left foot. See surgical report. IMPRESSION : FLUORO TIME 31.9 SEC Reason For Exam: Left 5th Metatarsal ORIF Dictated by Varun Jaed MD @ 07/18/2024 7:37:46 PM (Electronically Signed)
--- NOTE | 2024-07-17 13:01 | P.ORPRC_ITS ---
Procedure Note Date of procedure: 07/17/24 Procedure: PREOPERATIVE DIAGNOSES: 1. Left 5th metatarsal Hernandez fracture, closed, acute, recurrent fracture POSTOPERATIVE DIAGNOSES: 1. Left 5th metatarsal Hernandez fracture, closed, acute, recurrent fracture NAME OF OPERATION: 1. Left 5th metatarsal Hernandez fracture ORIF 2. 42566 - intraoperative fluoroscopy up to 1 hour. SURGEON: Delmer Barney MD DRAFTING LAYOUT WORKER: Mervin Natarajan PA-C ANESTHESIA: Regional block plus MAC IMPLANTS: Luz Elena 4.5 mm Asnis solid screw (star drive) TOURNIQUET: 25 minutes at 225 torr INDICATIONS: The patient is a pleasant, 23-year-old male who sustained a left 5th metatarsal fracture approximately 1 year ago. It was treated non operatively. It took him approximately 6+ months to fully unite, and that was with the assistance of a bone stimulator. Unfortunately, he had a new/recurrent injury to this left foot in the last 1 month. X-rays revealed refractured of the Hernandez fracture location left 5th metatarsal base. We discussed the nonoperative and surgical choices, and he elected for the surgical route, this time. FINDINGS: Left closed, 5th metatarsal Hernandez zone to recurrent fracture. PROCEDURE: Following a thorough discussion of risks, benefits, and alternatives, consent was obtained and the operative extremity was marked. The patient was brought to the operating room and placed supine on the operating table. Induction of anesthesia was achieved. Appropriate time out was performed identifying proper patient, site and procedure. 2 g IV Ancef was administered within 1 hour of incision preoperatively. The left lower extremity was prepped and draped in the appropriate sterile fashion using ChloraPrep prep. The limb was exsanguinated and the tourniquet inflated. A guide pin was 1st placed percutaneously in cm confirmed on oblique and lateral views to be appropriately in the medullary canal. Thereafter, a 15 blade scalp was utilized to create a skin incision that was approximately 1.5 cm in length. Blunt dissection down to the 5th metatarsal base allowed us to visualize the peroneus brevis tendon insertion. Retractors helped mobilize and retract this tissue while the drill sleeve and drill was passed through the metatarsal antegrade. Thereafter, a 4.5 mm screw was measured, selected, and placed with excellent compression across the 5th metatarsal fracture. The screw cutout was turned towards the cuboid to minimize the contact. Thorough irrigation normal saline was performed. Closure performed with 4-0 Monocryl for subcuticular closure. Tourniquet deflated, a posterior Ortho Glass splint was applied, and the patient woken from anesthesia and transferred the PACU in stable condition. PLAN: 1. Elevate operative extremity. 2. Ice, acetominphen or ibuprofen PRN. 3. Oxycodone for pain as needed. 4. Follow up with PA visit in 1-2 weeks for splint removal and transition to Cam boot. Would recommend nonweightbearing times 3weeks. Then progress to WBAT in CAM boot x 6 weeks. Then discontinue CAM boot.
--- NOTE | 2024-07-17 13:16 | W.ANESCHARGE ---
Anesthesia Charges Start Date/Time Anesthesia Start Date: 07/17/24 Anesthesia Start Time: 11:49 Stop Date/Time Anesthesia Stop Date: 07/17/24 Anesthesia Stop Time: 13:14
--- NOTE | 2024-07-17 13:25 | W.ANESCHARGE ---
Anesthesia Charges Start Date/Time Anesthesia Start Date: 07/17/24 Anesthesia Start Time: 11:49 Stop Date/Time Anesthesia Stop Date: 07/17/24 Anesthesia Stop Time: 13:14
--- NOTE | 2024-07-17 13:25 | W.PM.NB ---
Nerve Block Nerve Block Time Seen by Provider: :44 Date Seen: 07/17/24 Type of block requested by surgeon for post-operative analgesia: popliteal Side: left Time out performed: Yes Verification of patient name: Yes Verification of date of : Yes Site marking: site marked Name of person performing procedure: Alexander Continuous monitoring Was continuous monitoring of O2 sat, B/P, machine packaging technician, recorded every 15 minutes?: Yes Procedure Checklist: sterile prep, needles and gloves Ultrasound guided. Images saved: Yes Medications given in 5ml increments after negative aspiration: Marcaine %: 0.5 mL: 20 Needle gauge: 22 Patient tolerated procedure well: Yes Additional comments: Needle noted adjacent to nerve Block Charges Block Charge (with Pro Fee): Sciatic Nerve Use of Ultrasound Machine for Block: Yes- US Guidance/pain block
--- NOTE | 2024-07-17 13:27 | SUR.PHASEI ---
Patient came to PACU with anesthesia shakes, not cold, but gave warm blanket for comfort. No pain or nausea. Can feel toes and move toes bilaterally. Anesthesia gave demerol for shakes at the end of case and when entering the PACU.
--- NOTE | 2024-07-17 13:37 | SUR.PHASEI ---
Patient is awake and comfortable, No shaking, no pain or nausea, resting comfortably, No oxygen needed. Patient meets anesthesia PACU criteria for discharge from PACU
== END 2024-07-17 14:49 | disposition home or self-care (01) ==
PROVIDERS: Visit Provider Orthopaedic Surgery Sports Medicine
PROC: (CPT 28485; principal; 2024-07-17 12:30)
DX: S92.352A Displaced fracture of fifth metatarsal bone, left foot, initial encounter for closed fracture (principal); G89.18 Other acute postprocedural pain
CPT/HCPCS: 28485; 01480; 64445; 73620; 76942; A4580; C1713; J0665; J0690; J1100; J2175; J2405; J2704; J7030

== ENCOUNTER 2025-04-17 11:23 | Outpatient (CLI) | payer OTHER, SELFPAY | END 2025-04-17 11:24 | disposition home or self-care (01) | PROVIDERS: Visit Provider Internal Medicine | DX: M54.9 Dorsalgia, unspecified (principal) | CPT/HCPCS: A0998 ==

== ENCOUNTER 2025-04-17 11:48 | Emergency (ER) | payer OTHER, SELFPAY ==
--- OUTSIDE RECORDS SUMMARY | 2025-04-17 11:51 | XMS_ITS | Clinical Summary ---
Author Organization [facility] Address [address] [place] [id number] Care Team Providers Care Laborer Rags Name Role Phone Pcp, No Primary Care [...] Date Resolved Date Asthma 09/16/2013 03/29/2021 Immunizations Immunization Administration Dates Next Due AMB Influenza, IIV3 (Age >=3 years) Preserve Free (Flu Clinic Only) 07/20/2011,06/28/2010 AMB Influenza, IIV3 (Age >=3 years)(Flu Clinic Only) 07/31/2008 AMB Influenza, IIV4 PF (=>6 mos Flulaval,Fluzone Fluarix)(Flu Clinic Only) 10/05/2019,07/02/2018 COVID-19 vaccine (Pfizer-Bio NTech 30mcg/0.3mL) 12YO+ BIVALENT PF, MDV 07/09/2022 COVID-19 vaccine (Simworx-Bio NTech 30mcg/0.3mL) PF, MDV 08/16/2021 DTaP 01/27/2008, 4,04/12/2003,02/09 [id number] (Pediarix) 06/29/2003,04/12/2003,0 02/09/2003 HIB PRP-OMP (PedvaxHIB) 06/29/2003,04/12/2003, [...] Other paternal great grandpa in 50's of [place] Heart Disease Paternal Grandfather o f [place] at 59 years Other Sister Crohns disease [...] is your housing situation today? 1 07/13/2024 Utilities Answer Date Recorded Do you have trouble paying f or utilities (for example, heat, electricity, water, phone)? 1 07/13/2024 Sex and Gender Information Value Date Recorded Sex Assigned at Not on file Legal Sex Male 5:50 AM KNIFER UP Gender Identity Not on file Sexual Orientation Not on file Obstetrics History Last Filed Vital Signs Vital Sign Reading Time Taken Comments Blood Pressure 138/80 07/13/2024 12:26 PM [employer] Pulse 70 07/13/2024 12:05 PM [employer] Temperature 37.3 C (99.1 F) 03/22/2022 12:49 PM CDT Respiratory Rate 18 12/23/2014 8:55 AM CDT Oxygen Saturation 97% 07/13/2024 12:05 PM [employer] UP Inhaled Oxygen Concentration - - Weight 83.6 kg (184 lb 3.2 oz) 07/13/2024 12:05 PM K[employer] Height 177.3 cm (5' 9.8) 07/13/2024 12:05 PM CS T Body Mass Index 26.58 07/13/2024 12:05 PM [facility] UP Plan of Treatment Health Maintenance Due Date Last Done Comments COVID-19 vaccine series ( season) 2024 07/09/2022, 08/16/2021, 01/06/2021, Additional history exists Influenza Vaccine (#1) 2025 , 06/20/2021, 10/05/2019, Additional history exists BMI (ht and wt on same day) for age 18+ 07/13/2025 07/13/2024, 07/09/2022, 04/19/2022, Additional history exists Depression screening for age 12+ 07/13/2025 07/13/2024, 04/19/2022, 03/22/2022, Additional history exists Tetanus booster 07/30/2032 07/30/2022, 04/27/2015 Hepatitis B series for 19+ Completed 06/29, 04/12/2003, 04/12/2003, Additional history exists Pneumococcal series for age 6-49 Aged Out 06/29/2003, 04/12/2003, 02/09/2003 No longer eligible based on patient's age to complete this topic HPV series for age 9-26 Completed 04/17/20 16, 11/25/2015, 06/24/2015 HIV for age 15-65 Completed 04/19/2022 Hepatitis [...] miko Non-React miko 04/20/2022 4:19 PM CDT [facility] Comment:Antibodies to HCV no t detected; does not exclude the possibility of exposure to HCV. Blood BLOOD SPECIMEN / Unknown Venipuncture / Unknown 04/19/2022 5:21 PM CDT 04/19/2022 5:32 PM CDT Kenzie CADET SEND OUTS Final Resu lt Performing Organization Address City/[facility]/ZIP Co de Phone Number [facility] [address] [place] [address], * ANTI HIV 1/2 (04/19/2022 5:21 PM CDT) HIV-1/HIV-2 ANTIBODY Non-Reacti ve Non-Reacti ve 04/20/2022 4:41 PM CDT [facility] Comment:HIV-1 p24 and HIV-1/ HIV-2 Ab not detected. Blood BLOOD SPECIMEN / Unknown Venipuncture / Unknown 04/19/2022 5:21 PM CDT 04/19/2022 5:32 PM CDT Kenzie CADET SEND OUTS Final Resu lt Performing Organization Address [facility] Co de Phone Number [facility] [address] [place] [address], from Last 3 Months or Most Recently Relevant to Health Maintenance Insurance [facility] [place] [id number] [place] [id number] [employer] Care Teams Laborer Rags Relationship Specialty Start Date End Date Pcp, No . PCP - General 07/13/24
[2025-04-17 11:54] VITALS: BP 133/75; PULSE 76; RESP 18; TEMP 36.7; O2SAT 95; BMI 28.1
--- NOTE | 2025-04-17 12:21 | ED.GENADULT ---
HPI - General Adult General Chief complaint: Back Injury/Pain Stated complaint: Back Spasms Time Seen by Provider: 04/17/25 11:50 Source: patient Mode of arrival: ambulatory Limitations: no limitations History of Present Illness HPI narrative: 24-year-old male presents today with low back pain that is bilateral but left worse than the right side. Pain started last night directly after he went weightlifting. States that he finished his work out was filling up his water bottle when all of sudden he developed acute low back pain. He states that he laid down the gym for about 30 minutes then was able to get back up we will home. He was able to get sleep last night when he woke up this morning he felt better however he went to stand up and the pain shot across his low back. It comes as spasms and takes his breath away. He denies difficulty urinating. Does not have a bowel movement. Denies loss of control of the bladder or bowel. No fevers or chills. No nausea or vomiting. No changes in the color of his urine. No abdominal pain. The pain does not radiate up the spine or down the legs. He states that this has happened in the past however it has never been this strong. Related Data Home Medications ?Medication ?Instructions ?Recorded ?Confirmed acetaminophen 500 mg tablet 1,000 mg PO Q6H PRN 07/24/24 04/17/25 (Tylenol Extra Strength) ibuprofen 200 mg tablet 600 mg PO Q6-8H PRN 07/24/24 04/17/25 Previous Rx's ?Medication ?Instructions ?Recorded cyclobenzaprine 10 mg tablet 10 mg PO TID PRN muscle spasm #10 04/17/25 tabs ketorolac 10 mg tablet 10 mg PO TID 5 days #15 tabs 04/17/25 Allergies Allergy/AdvReac Type Severity Reaction Status Date / Time bee venom protein (honey bee) Allergy Severe Anaphylaxis Verified 04/17/25 12:00 Review of Systems Status of ROS: Reports: 10 or more systems reviewed and unremarkable except as noted in History and below [facility] Medical History Closed fracture of fifth metatarsal bone ?S92.353A - Displaced fracture of fifth metatarsal bone, unspecified foot, initial encounter for closed fracture (ICD-10) Sore throat ?J02.9 - Acute pharyngitis, unspecified (ICD-10) Pharyngitis ?J02.9 - Acute pharyngitis, unspecified (ICD-10) Influenza-like illness ?J11.1 - Influenza due to unidentified influenza virus with other respiratory manifestations (ICD-10) 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 (ICD-10) No significant past medical history Surgical History History of open reduction and internal fixation (ORIF) procedure (07/17/24) ?Z98.890 - Other specified postprocedural states (ICD-10) Hx of tympanostomy ?Z98.890 - Other specified postprocedural states (ICD-10) Hx of wisdom tooth extraction ?K08.409 - Partial loss of teeth, unspecified cause, unspecified class (ICD-10) History of adenoidectomy ?Z90.89 - Acquired absence of other organs (ICD-10) Social History Smoking Status: Former smoker What tobacco products do you use: cigarettes Smoking quit date/years: <= 15 years ago Do you use any of these nicotine containing products: None Second hand tobacco smoke exposure: No How often do you have a drink containing alcohol: 2-4 times a month How often do you have six or more drinks on one occasion: Less than monthly AUDIT-C Alcohol total score: 3 Non-prescribed substance use: denies use Caffeine: Yes (daily caffeine-energy drinks, coffee) service: No Exam Narrative: Exam Narrative: Well-nourished well-developed patient , clearly uncomfortable. Alert and oriented. Answers questions appropriately. Mood and affect are appropriate. Thoughts are goal oriented and rational. No tangential or magical thinking noted. Patient speaks in full sentences without needing to catch his breath. HEENT: Normocephalic atraumatic. Extraocular muscles are intact. Conjunctivae are moist without any icterus noted. Moist mucous membranes. Patient takes deep breaths without any discomfort. Abdomen: Soft and nontender nondistended with normal bowel sounds. Extremities: Bilateral lower extremities are without edema. Normal DP and PT pulses. Skin: Well perfused without any obvious rashes. Back: Normal appearance. No tenderness at the thoracic or lumbar spine. No significant tenderness of the paraspinal musculature. No CVA tenderness. Patient has really hard time going from a lying to a sitting position. Straight leg test is negative bilaterally. Strength is 5/5 of the upper and lower extremities. Reflexes are 2+ and symmetric at the knees. Const: Vital Signs, click to edit/add: Vital Signs - 24 hr 04/17/25 11:54 Temperature 98.0 F Pulse Rate [Right Pulse Oximeter] 76 Respiratory Rate 18 Blood Pressure [Ri ght Upper Arm] 133/75 Pulse Oximetry 95 Oxygen Delivery Me thod Room Air Course Course ED Course: Patient received 60 mg of IM Toradol. EUA does not have any blood or evidence of infection. Does show evidence of some dehydration. Patient states that he knows that he does not drink enough water. Patient felt better after treatment. Was able to sit and walk around. Vital Signs Vital signs: Initial Vital Signs Temperature 98.0 F 04/17/25 11:54 Temperature Source Temporal Artery Scan 04/17/25 11:54 Pulse Rate 76 04/17/25 11:54 Pulse Rhythm Regular 04/17/25 11:54 Pulse Strength 3+ Normal 04/17/25 11:54 Respiratory Rate 18 04/17/25 11:54 Blood Pressure 133/75 04/17/25 11:54 Blood Pressure Mean 94 04/17/25 11:54 Blood Pressure Position Sitting 04/17/25 11:54 Pulse Oximetry 95 04/17/25 11:54 Oxygen Delivery Method Room Air 04/17/25 11:54 Vital Signs Temperature 98.0 F 04/17/25 11:54 Pulse Rate 76 04/17/25 11:54 Respiratory Rate 18 04/17/25 11:54 Blood Pressure 133/75 04/17/25 11:54 Pulse Oximetry 95 04/17/25 11:54 Oxygen Delivery Method Room Air 04/17/25 11:54 Temperature 98.0 F 04/17/25 11:54 Pulse Rate 76 04/17/25 11:54 Respiratory Rate 18 04/17/25 11:54 Blood Pressure 133/75 04/17/25 11:54 Pulse Oximetry 95 04/17/25 11:54 Oxygen Delivery Method Room Air 04/17/25 11:54 Medications Administered Medications: Discontinued Medications Generic Name Dose Route Start Last Admin Trade Name Freq PRN Reason Stop Dose Admin Ketorolac Tromethamine 60 mg 04/17/25 12:15 04/17/25 12:16 Ketorolac 60 Mg/2 Ml Inj IM 04/17/25 12:16 60 mg ONCE ONE Administration Medical Decision Making MDM Narrative Medical decision making narrative: 24-year-old male with low back pain. We discussed symptomatic treatment, Toradol, Flexeril, heat and reasons for follow-up. Lab Data Lab results reviewed: Yes I reviewed the patient's lab results Labs: Lab Results 04/17/25 Range/Units 12:20 Urine Color Dark yellow (Yellow) Urine Appearance Clear (Clear) Urine pH 6.0 (5.0-8.5) Ur Specific [place] >= 1.030 (1.000-1.030) Urine Protein Negative (Negative) Urine Glucose (UA) Negative (Negative) Urine Ketones Negative (Negative) Urine Blood Negative (Negative) Urine Nitrite Negative (Negative) Urine Bilirubin Negative (Negative) Urine Urobilinogen 0.2 (0.2-1.0) Ur Leukocyte Esterase Negative (Negative) Urine RBC 0-2 (0-2) Urine WBC 0-2 (0-5) Ur Squamous Epith Cells Few (None-Few) Urine Bacteria None (None) Discharge Plan Discharge Clinical Impression: Low back pain Patient Disposition: Home, Self-Care Condition: Stable Instructions: Acute Low Back Pain (ED) Additional Instructions: You will be sent home with cyclobenzaprine (Flexeril) which is a muscle relaxer and ketorolac (Toradol) which is an anti-inflammatory and pain medication. You should not take this medication with ibuprofen. Recommend walking around throughout the day, using heating pad when resting. Do not apply heat directly to the skin and do not use more than 20 minutes at a time. Follow-up with her primary care provider as needed. Prescriptions: New cyclobenzaprine 10 mg tablet 10 mg PO TID PRN (Reason: muscle spasm) Qty: 10 0RF ketorolac 10 mg tablet 10 mg PO TID 5 Days Qty: 15 0RF No Action acetaminophen [Tylenol Extra Strength] 500 mg tablet 1,000 mg PO Q6H PRN ibuprofen 200 mg tablet 600 mg PO Q6-8H PRN Follow Up/Referrals: Provider,Not a Local [Primary Care Provider, Family Practice] Stand Alone Forms: [facility] Info Instructions
[2025-04-17 12:28] LABS: Appearance Urine Clear (Clear)
== END 2025-04-17 12:59 | disposition home or self-care (01) ==
PROVIDERS: Emergency Provider Family Medicine
DX: M54.50 Low back pain, unspecified (principal)
CPT/HCPCS: 81001; 96372; 99283; 99284; J1885